=== PATIENT | male | born 1985 | race Caucasian/White ===

== ENCOUNTER 2022-11-11 19:38 | Emergency (ER) | payer OTHER, SELFPAY ==
[2022-11-11 19:51] VITALS: BP 173/96; PULSE 79; RESP 16; TEMP 36.4; O2SAT 100; BMI 27.3
--- NOTE | 2022-11-11 19:54 | ECG_ITS ---
Test Reason : HYPERTENTION Blood Pressure : / mmHG Vent. Rate : 068 BPM Atrial Rate : 068 BPM P-R Int : 150 ms QRS Dur : 094 ms QT Int : 408 ms P-R-T Axes : 031 045 007 degrees QTc Int : 433 ms Normal sinus rhythm Normal ECG No previous ECGs available Referred By: Millicent Michael Electronically Signed By:KENNETH VERNON
--- NOTE | 2022-11-11 19:55 | ED.GENADULT ---
HPI - General Adult General Chief complaint: General Medical <Millicent Michael CNP - Last Filed: 11/11/22 19:56> Stated complaint: hypertension <Millicent Michael CNP - Last Filed: 11/11/22 19:56> Time Seen by Provider: 11/11/22 21:00 <Millicent Michael CNP - Last Filed: 11/11/22 19:56> Source: patient <Sly Nino MD - Last Filed: 11/11/22 21:43> Mode of arrival: ambulatory <Sly Nino MD - Last Filed: 11/11/22 21:43> Limitations: no limitations <Sly Nino MD - Last Filed: 11/11/22 21:43> History of Present Illness HPI narrative: 36-year-old male who presents emergency department for evaluation of chest pain and feeling weird . The patient states that he had a normal day. He states that he rode his bike for an hour in the morning. He then walked his dog. He states he got home around 17:30 hours and was eating dinner when he had a the a pressure-like sensation in his chest. He states that he also had a weird sensation in his head. He states he has had similar episodes in the past. States that this episode of chest pain lasted approximately 1-1/2 hours. There is no radiation of the pain. He states that on Saturday 3 days prior while he was at work and not exerting himself he had a sudden onset of heart racing sensation. Did not have chest pain at that time. Patient states he has had intermittent headaches which she describes as tension headaches, he states he gets these headaches a couple times a month. He did check his blood pressure at home his blood pressure was 170/100, he states this pulse was in the 70s. He was concerned about his symptoms and his elevated blood pressure so he came to the emergency department for evaluation The patient states that he exercises frequently with no chest pain with exertion or fatigue with exertion. 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 <Sly Nino MD - Last Filed: 11/11/22 21:43> Related Data Allergies/adverse reactions: Allergies Allergy/AdvReac Type Severity Reaction Status Date / Time cefaclor [From [facility]] Allergy Unknown Verified 11/11/22 19:54 morphine Allergy Unknown Verified 11/11/22 19:54 <Millicent Michael CNP - Last Filed: 11/11/22 19:56> Review of Systems Review of Systems: Yes all other systems are reviewed and are negative <Sly Nino MD - Last Filed: 11/11/22 21:43> [facility] Past Medical History [facility] Narrative: Past medical history: None. Past surgical history: None. Social history: He denies tobacco use. He states he drinks 2-4 beers 2 times a week. He states he occasionally smokes marijuana. He denies any other drug use. Family history: Mother is 65 years old with history of hypertension. Father is 70 years old with no medical problems. Sister is 40 years old with hypertension. There is no history of early coronary artery disease in his primary family members. <Sly Nino MD - Last Filed: 11/11/22 21:43> Social History Social History: Social History Advance Directives: No Advance Directives Information Provided: No <Millicent Michael CNP - Last Filed: 11/11/22 19:56> Physical Exam ED Vital Signs: Vital Signs - 24 hr 11/11/22 19:51 Temperature 97.6 F Pulse Rate 79 Respiratory Rate 16 Blood Pressure 173/96 H Pulse Oximetry 100 Oxygen Delivery Method Room Air BMI result Body Mass Index 27.3 <Millicent Michael CNP - Last Filed: 11/11/22 19:56> Vital Signs - 24 hr 11/11/22 19:51 Temperature 97.6 F Pulse Rate 79 Respiratory Rate 16 Blood Pressure 173/96 H Pulse Oximetry 100 Oxygen Delivery Method Room Air BMI result Body Mass Index 27.3 <Sly Nino MD - Last Filed: 11/11/22 21:43> Const General: cooperative and no acute distress <Sly Nino MD - Last Filed: 11/11/22 21:43> Orientation/consciousness: oriented to person and oriented to place <Sly Nino MD - Last Filed: 11/11/22 21:43> Limitations: no limitations <Sly Nino MD - Last Filed: 11/11/22 21:43> HENMT Head: Yes normal to inspection, Yes normocephalic and Yes atraumatic <Sly Nino MD - Last Filed: 11/11/22 21:43> Ears: external ears normal <Sly Nino MD - Last Filed: 11/11/22 21:43> General nose exam: Normal external nose present <Sly Nino MD - Last Filed: 11/11/22 21:43> Face and sinus: Yes normal facial exam <Sly Nino MD - Last Filed: 11/11/22 21:43> Mouth: Normal oral and palatal mucosa present <MD John Boothe Last Filed: 11/11/22 21:43> Throat: Yes posterior oropharynx normal <Sly Nino MD - Last Filed: 11/11/22 21:43> Eyes General: appearance normal, both eyes and all related structures <Sly Nino MD - Last Filed: 11/11/22 21:43> Pupils: Equal, round and reactive pupils present <MD John Boothe Last Filed: 11/11/22 21:43> Neck Neck: Yes normal visual inspection, Yes no lymphadenopathy, Yes trachea midline and Yes supple <MD John Boothe Last Filed: 11/11/22 21:43> Chest Chest palpation & inspection: normal inspection of the chest and normal palpation of entire chest wall <MD John Boothe Last Filed: 11/11/22 21:43> Resp Effort & Inspection: normal respiratory effort and able to speak in complete sentences <MD John Boothe Last Filed: 11/11/22 21:43> Auscultation: clear to auscultation bilaterally <MD John Boothe Last Filed: 11/11/22 21:43> Cardio Rate: regular rate <MD John Boothe Last Filed: 11/11/22 21:43> Rhythm: regular rhythm <MD John Boothe Last Filed: 11/11/22 21:43> Heart sounds: S1 normal heart sound present, S2 normal heart sound present and no murmurs <Sly Nino MD - Last Filed: 11/11/22 21:43> GI Inspection: Yes normal to inspection <Sly Nino MD - Last Filed: 11/11/22 21:43> Palpation (GI): Soft to palpation, nontender and no guarding <Sly Nino MD - Last Filed: 11/11/22 21:43> Auscultation: normal bowel sounds <Sly Nino MD - Last Filed: 11/11/22 21:43> General: Yes no CVA tenderness <Sly Nino MD - Last Filed: 11/11/22 21:43> Back/Spine/Pelvis Back: no CVA tenderness <Syl Nino MD - Last Filed: 11/11/22 21:43> Skin General skin exam: no rashes or lesions noted <Sly Nino MD - Last Filed: 11/11/22 21:43> Neuro General: oriented to person and oriented to place <Sly Nino MD - Last Filed: 11/11/22 21:43> Cranial nerves: Yes CN's II-XII intact bilaterally and Yes Equal, round and reactive pupils present <Sly Nino MD - Last Filed: 11/11/22 21:43> Cognition (Neuro): normal cognition <Sly Nino MD - Last Filed: 11/11/22 21:43> Motor exam (neuro): 5/5 motor strength present throughout <Sly Nino MD - Last Filed: 11/11/22 21:43> Extrem General: Yes normal to inspection <Sly Nino MD - Last Filed: 11/11/22 21:43> Psych Appearance: grossly normal <Sly Nino MD - Last Filed: 11/11/22 21:43> Speech and movement: Normal speech and movement present <Sly Nino MD - Last Filed: 11/11/22 21:43> Affect: normal affect <Sly Nino MD - Last Filed: 11/11/22 21:43> Attitude: cooperative <Sly Nino MD - Last Filed: 11/11/22 21:43> Course Course Course Narrative: This is an RME: Additional HPI, ROS, PE not included below will be deferred to primary provider. Patient is a 36-year-old male presents emergency department for evaluation of elevated blood pressure. He states a couple days ago he had a panic attack, at the time he noticed his blood pressure to be elevated. He repeated his blood pressure today at home and states that was also elevated 170/100. Denies any history of hypertension. Denies dizziness, lightheadedness, headache, vision changes, chest pain, shortness of breath, neck pain, ABD pain, nausea, vomiting, numbness or tingling of extremities. Plan: EKG, labs to assess signs of end organ dysfunction, overall well appearing, at this time asymptomatic hypertension <Millicent Michael CNP - Last Filed: 11/11/22 19:56> Medical Decision Making Medical Decision Making MDM Narrative: 36-year-old male who presents emergency department for evaluation of chest pressure and unusual sensation in his head which started at 17:30 hours while he was eating. The patient states that 3 days prior he also had an episode of palpitations with no chest pain. States he has had similar symptoms this Fall. The patient is physically active and states that he is able to exercise without any chest pain or fatigue. Patient's vital signs here in the emergency department did reveal an elevated blood pressure of 173/96 and 155/87 otherwise vital signs were unremarkable. Patient's physical examination was normal. Patient's 12 EKG was unremarkable. Patient's CBC and comprehensive metabolic panel were normal. Patient's high sensitive troponin was below detectable limits. This time I do not have a clear etiology for the patient's symptoms, it is possible that these could be secondary to anxiety, arrhythmia or hypertension. I did discuss this with the patient. At this time I do not improve she started on antihypertensive medications. The patient was advised to check his blood pressure 3 times a week for the next 2 weeks and to follow-up with his PCP to discuss these readings. I also told a may need a Holter monitor/palpitation workup as an outpatient. Patient was given printed and verbal instructions and discharged home. <Sly Nino MD - Last Filed: 11/11/22 21:43> Differential Diagnosis Differential diagnosis includes but is not limited to myocardial infarction, angina, palpitations, arrhythmias, anxiety, stress <Sly Nino MD - Last Filed: 11/11/22 21:43> Lab Data MDM Lab Attestation statement: I reviewed the patient's lab results. <Sly Nino MD - Last Filed: 11/11/22 21:43> My interpretation is the patient's labs normal, with no evidence for any or renal disease <Sly Nino MD - Last Filed: 11/11/22 21:43> Result Diagrams: 11/11/22 20:06 11/11/22 20:06 <Millicent Michael CNP - Last Filed: 11/11/22 19:56> Labs: Lab Results 11/11/22 11/11/22 11/11/22 Range/Units 20:06 20:06 20:06 WBC 8.0 (4.8-10.8) X10*3/uL RBC 5.14 (4.60-5.80) X10*6/uL Hgb 15.9 (14.0-18.0) g/dl Hct 45.6 (42.0-52.0) % MCV 88.7 (80.0-98.0) fL MCH 30.9 (27.0-33.0) pg MCHC 34.9 (31.0-36.0) g/dl RDW 11.9 (11.0-16.0) % Plt Count 257 (160-400) X10*3/uL MPV 10.0 (9.4-12.4) fL Immature Gran % (Auto) 0.1 (0.0-0.4) % Neut % (Auto) 78.3 H (45-73) % Lymph % (Auto) 14.9 L (20-40) % Sharp % (Auto) 5.9 (2-11) % Eos % (Auto) 0.3 (0-4) % Baso % (Auto) 0.5 (0-2) % Lymph # (Auto) 1.2 (1.2-4.9) X10*3/uL Sharp # (Auto) 0.5 (0.1-1.2) X10*3/uL Eos # (Auto) 0.0 (0.0-0.4) X10*3/uL Baso # (Auto) 0.0 (0.0-0.2) X10*3/uL Abs Immat Gran (auto) 0.01 (0.00-0.03) X10*3/uL Absolute Neuts (auto) 6.2 (2.0-8.3) x10*3/uL Absolute Nucleated RBC 0.000 (0.0-0.012) X10*3/uL Nucleated RBC % (auto) 0.0 (0.0-0.2) /100WBC Sodium 142 (135-145) mmol/L Potassium 3.8 (3.3-5.1) mmol/L Chloride 102 (96-108) mmol/L Carbon Dioxide 26 (22-29) mmol/L Anion Gap 18 (12-20) BUN 7 L (9-16) mg/dL Creatinine 0.88 (0.5-1.4) mg/dL Estim Creat Clear Calc 114.9 Estimated GFR > 60 Random Glucose 92 (60-115) mg/dL Calcium 10.0 (8.4-10.2) mg/dL Total Bilirubin 0.7 (0.0-1.0) mg/dL AST 26 (5-37) U/L ALT 21 (0-40) U/L Alkaline Phosphatase 58 (39-117) U/L Troponin I High Sens < 3.5 (<3.5-35.0) ng/L Total Protein 7.8 (6.5-8.0) g/dL Albumin 4.7 (3.5-5.0) g/dL <Millicent Michael, KM - Last Filed: 11/11/22 19:56> Lab Results 11/11/22 11/11/22 11/11/22 Range/Units 20:06 20:06 20:06 WBC 8.0 (4.8-10.8) X10*3/uL RBC 5.14 (4.60-5.80) X10*6/uL Hgb 15.9 (14.0-18.0) g/dl Hct 45.6 (42.0-52.0) % MCV 88.7 (80.0-98.0) fL MCH 30.9 (27.0-33.0) pg MCHC 34.9 (31.0-36.0) g/dl RDW 11.9 (11.0-16.0) % Plt Count 257 (160-400) X10*3/uL MPV 10.0 (9.4-12.4) fL Immature Gran % (Auto) 0.1 (0.0-0.4) % Neut % (Auto) 78.3 H (45-73) % Lymph % (Auto) 14.9 L (20-40) % Sharp % (Auto) 5.9 (2-11) % Eos % (Auto) 0.3 (0-4) % Baso % (Auto) 0.5 (0-2) % Lymph # (Auto) 1.2 (1.2-4.9) X10*3/uL Sharp # (Auto) 0.5 (0.1-1.2) X10*3/uL Eos # (Auto) 0.0 (0.0-0.4) X10*3/uL Baso # (Auto) 0.0 (0.0-0.2) X10*3/uL Abs Immat Gran (auto) 0.01 (0.00-0.03) X10*3/uL Absolute Neuts (auto) 6.2 (2.0-8.3) x10*3/uL Absolute Nucleated RBC 0.000 (0.0-0.012) X10*3/uL Nucleated RBC % (auto) 0.0 (0.0-0.2) /100WBC Sodium 142 (135-145) mmol/L Potassium 3.8 (3.3-5.1) mmol/L Chloride 102 (96-108) mmol/L Carbon Dioxide 26 (22-29) mmol/L Anion Gap 18 (12-20) BUN 7 L (9-16) mg/dL Creatinine 0.88 (0.5-1.4) mg/dL Estim Creat Clear Calc 114.9 Estimated GFR > 60 Random Glucose 92 (60-115) mg/dL Calcium 10.0 (8.4-10.2) mg/dL Total Bilirubin 0.7 (0.0-1.0) mg/dL AST 26 (5-37) U/L ALT 21 (0-40) U/L Alkaline Phosphatase 58 (39-117) U/L Troponin I High Sens < 3.5 (<3.5-35.0) ng/L Total Protein 7.8 (6.5-8.0) g/dL Albumin 4.7 (3.5-5.0) g/dL <Sly Nino MD - Last Filed: 11/11/22 21:43> Independent Interpretation I performed an independent interpretation of an: EKG <Sly Nino MD - Last Filed: 11/11/22 21:43> Interpretation: My personal interpretation patient's 12 EKG done 20:00 hours as follows: Normal sinus rhythm with a rate of 68, normal KS interval QRS duration QTC interval Q and inverted T-wave in lead 3, no ST segment elevation, no ST segment depression, no PACs, no PVCs, this is a normal EKG. There is no previous EKG for comparison. <Sly Nino MD - Last Filed: 11/11/22 21:43> Discharge Plan Discharge Clinical Impression: Chest pain <Millicent Michael CNP - Last Filed: 11/11/22 19:56> Patient Disposition: Home, Self-Care <Millicent Michael CNP - Last Filed: 11/11/22 19:56> Instructions: Chest Pain (ED) <Millicent Michael CNP - Last Filed: 11/11/22 19:56> Additional Instructions: Your CBC and comprehensive metabolic panel were normal. Your high sensitivity troponin I was below detectable limits which is reassuring suggesting that you did not have any heart damage/heart attack as the cause of your chest pain. Your 12 EKG was normal. Your blood pressure was elevated here in the emergency department 173/96 and 155/87. Sometimes blood pressure can be elevated secondary to stress, anxiety and pain and this does not mean that you have high blood pressure. In order to determine if you have high blood pressure I want you to check your blood pressure on Mondays, Wednesdays and Fridays in the morning and write these readings down to discuss with your doctor. Do this for 2 weeks and try to get a two to three-week follow-up with your primary care doctor to discuss these blood pressure readings. If you do have high blood pressure readings when your not having chest pain and your relaxed at home then you will need to be started on a blood pressure medication. If you get started on a blood pressure medication it sometimes takes 4-6 weeks before these medications work and sometimes these medications need to be adjusted to control your blood pressure. The reason to treat high blood pressure is that high blood pressure over time leads to increased risk of heart attack, stroke and kidney failure. Goal is to reduce your blood pressure over your life time and not to treat each individual elevated blood pressure. If you get chest pain with exertion or fatigue with exertion then I would be concerned about your heart as the cause of your symptoms and you should return to the emergency department for re-evaluation. Sometimes symptoms can be caused by a heart arrhythmia, if you get these symptoms you check your pulse and if it is too higher to low then this could possibly be a cause of your symptoms and you may need a Holter monitor or event monitor as an outpatient to check for arrhythmias. Follow-up with your doctor Please return to the emergency department if your symptoms get worse or if you develop any symptoms that are concerning to you. <Millicent Michael, KM - Last Filed: 11/11/22 19:56>
[2022-11-11 20:10] LABS: MANUAL DIFF FLAG NO
[2022-11-11 20:11] LABS: Basophils Percent Auto 0.5 % (0-2); Eosinophils Percent Auto 0.3 % (0-4); Hematocrit 45.6 % (42.0-52.0); Hemoglobin 15.9 g/dl (14.0-18.0); Imm Gran Abs Auto 0.01 X10*3/uL (0.00-0.03); Imm Gran Pct Auto 0.1 % (0.0-0.4); Lymphocytes Absolute Auto 1.2 X10*3/uL (1.2-4.9); Lymphocytes Percent Auto 14.9 % (20-40); Mean Corpuscular HGB Conc 34.9 g/dl (31.0-36.0); Mean Corpuscular Hemoglobin 30.9 pg (27.0-33.0); Mean Corpuscular Volume 88.7 fL (80.0-98.0); Monocytes Absolute Auto 0.5 X10*3/uL (0.1-1.2); Monocytes Percent Auto 5.9 % (2-11); Neutrophils Absolute Auto 6.2 x10*3/uL (2.0-8.3); Neutrophils Percent Auto 78.3 % (45-73); Platelet Count 257 X10*3/uL (160-400); Red Blood Count 5.14 X10*6/uL (4.60-5.80); Red Cell Distribution Width 11.9 % (11.0-16.0)
[2022-11-11 20:32] LABS: Alanine Aminotransferase 21 U/L (0-40); Albumin Level 4.7 g/dL (3.5-5.0); Alkaline Phosphatase 58 U/L (39-117); Anion Gap 18 (12-20); Aspartate Amino Transferase 26 U/L (5-37); Bilirubin Total 0.7 mg/dL (0.0-1.0); Blood Urea Nitrogen 7 mg/dL (9-16); Carbon Dioxide 26 mmol/L (22-29); Chloride 102 mmol/L (96-108); Creatinine Clr Calc Pharmacy 114.9; Estimated Glomerular Filt Rate > 60; Glucose Random 92 mg/dL (60-115); Potassium 3.8 mmol/L (3.3-5.1); Sodium 142 mmol/L (135-145); Total Protein 7.8 g/dL (6.5-8.0)
[2022-11-11 20:39] LABS: Troponin-I High Sensitivity < 3.5 ng/L (<3.5-35.0)
--- NOTE | 2022-11-11 20:43 | PC.NURSE ---
pt instructed how to do CC urine collection in order to obtain urine specimen and sent to restroom
[2022-11-11 20:59] VITALS: BP 155/87; PULSE 72; RESP 18; TEMP 36.7; O2SAT 99
[2022-11-11 21:06] LABS: Appearance Urine Clear; Color Urine Yellow; Glucose Urine UA Negative (Negative); Leukocyte Esterase Urine Negative (Negative); Nitrite Urine Negative (Negative); Specific Gravity - Urine <= 1.005 (1.005-1.025); Urine Blood Negative (Negative); Urine Ketones 15 mg/dL (Negative); Urine Protein Negative (Neg-Trace)
== END 2022-11-11 21:41 | disposition home or self-care (01) ==
PROVIDERS: Nurse Practitioner Family; Emergency Provider Emergency Medicine Emergency Medical Services
DX: R07.89 Other chest pain (principal); R53.83 Other fatigue; Z79.899 Other long term (current) drug therapy
CPT/HCPCS: 36415; 80053; 81003; 84484; 85025; 93005; 99284